=== PATIENT | female | born 1950 | race Hispanic/Latino ===

== ENCOUNTER 2021-06-29 16:18 | Emergency (ER) | payer MEDICARE ==
[~2021-06-29] VITALS: Ht 152.4 cm; Wt 59.0 kg
[2021-06-29] MEDS ORDERED: IBUPROFEN 600 MG TABLET PO ONE (18:00)
[2021-06-29] MEDS ORDERED: TRAMADOL HCL 50 MG TABLET PO ONE (18:00)
[2021-06-29] MEDS ORDERED: IBUP-2091 PO (18:42)
[2021-06-29 18:49] VITALS: BP 121/88
== END 2021-06-29 18:57 | disposition home or self-care (01) ==
LOC: EDH 16:18
DX: S52.121A Displaced fracture of head of right radius, initial encounter for closed fracture (principal); S80.212A Abrasion, left knee, initial encounter; I10 Essential (primary) hypertension; Z79.899 Other long term (current) drug therapy; W19.XXXA Unspecified fall, initial encounter; Y93.01 Activity, walking, marching and hiking; Y92.89 Other specified places as the place of occurrence of the external cause; Y99.8 Other external cause status
CPT/HCPCS: 29105; 73080